=== PATIENT | female | born 1985 | race Caucasian/White ===

== ENCOUNTER → 2017-09-03 06:37 | Outpatient (CLI) | payer OTHER, SELFPAY ==
[2017-09-03 10:48] LABS: Progesterone Level 5.12 ng/mL (See Comment)
== END ==
PROVIDERS: Family Provider Family Medicine; PCP Family Medicine; Visit Provider Nurse Practitioner Women's Health
DX: N92.6 Irregular menstruation, unspecified (principal)
CPT/HCPCS: 36415; 84144

== ENCOUNTER → 2017-09-29 14:45 | Outpatient (CLI) | payer OTHER, SELFPAY ==
[2017-09-29 16:54] LABS: Chlamydia Trachomatis by PCR Negative (Negative); Neisserai gonorrhoeae by PCR Negative (Negative); Probe Check PASS; Sample Adequacy Control PASS; Specimen Processing Control PASS
[2017-10-05 17:35] LABS: HPV APTIMA, High Risk Negative (Negative)
== END ==
PROVIDERS: Family Provider Family Medicine; PCP Family Medicine; Visit Provider Obstetrics & Gynecology
DX: Z34.01 Encounter for supervision of normal first pregnancy, first trimester (principal); Z12.4 Encounter for screening for malignant neoplasm of cervix
CPT/HCPCS: 87086; 87088; 87491; 87591; 88175; G0145

== ENCOUNTER → 2017-10-14 16:34 | Outpatient (CLI) | payer OTHER, SELFPAY ==
[2017-10-14 17:38] LABS: Absolute Lymphocyte Count 2.62 X10^3/ul (0.83-4.51); Absolute Neutrophil Count 7.1 X10^3/uL (2.0-7.7); Basophil# 0.04 X10^3/uL; Basophil% 0.4 % (0-1); Eosinophils% 2.8 % (0-5); Hematocrit 35.7 % (37-47); Hemoglobin 12.1 g/dl (12.0-15.0); Lymphocyte # 2.62 X10^3/ul (4.0); Lymphocyte % 24.3 % (19-41); Mean Corp Hgb Conc 33.9 g/gl (32-36); Mean Corpuscular Hgb 29.6 pg (27.0-32.0); Mean Corpuscular Volume 87.3 fL (81-99); Mean Platelet Vol. 10.3 fl (6.2-12.0); Monocyte# 0.74 X10^3/uL; Monocyte% 6.9 % (0-10); Neutrophil # 7.07 X10^3/uL (2.7-7.7); Neutrophil % 65.3 % (47-70); Platelet Count 345 K/mm3 (150-450); RBC Distribution Width CV 12.5 % (11.6-14.6); RBC Distribution Width SD 38.8 fl (35.1-43.9); Red Blood Count 4.09 M/mm3 (4.2-5.4); White Blood Count 10.8 K/mm3 (4.4-11.0)
[2017-10-14 18:24] LABS: POSITIVE COUNT NO; POSITIVE DIFFERENTIAL NO; POSITIVE MORPHOLOGY NO
[2017-10-15 01:13] LABS: Rapid Plasmin Reagin (RPR) NONREACTIVE (NONREACTIVE)
[2017-10-15 10:42] LABS: HIV - WCH Non-Reactive (Nonreactive); Rubella IgG 57.3 IU/mL
[2017-10-16 11:47] LABS: HEPATITIS B SURFACE AG Negative (Negative)
== END ==
PROVIDERS: Family Provider Family Medicine; PCP Family Medicine; Visit Provider Obstetrics & Gynecology
DX: Z34.90 Encounter for supervision of normal pregnancy, unspecified, unspecified trimester (principal); Z3A.00 Weeks of gestation of pregnancy not specified
CPT/HCPCS: 36415; 85025; 86592; 86703; 86762; 86850; 86900; 87340

== ENCOUNTER → 2017-11-03 10:28 | Outpatient (CLI) | payer OTHER, SELFPAY ==
[2017-11-03 11:27] LABS: Glucose Challenge Gest 1H 50g 137 mg/dL (70-140)
== END ==
PROVIDERS: Family Provider Family Medicine; PCP Family Medicine; Visit Provider Obstetrics & Gynecology
DX: Z34.01 Encounter for supervision of normal first pregnancy, first trimester (principal)
CPT/HCPCS: 36415; 82950

== ENCOUNTER → 2017-11-12 07:48 | Outpatient (CLI) | payer OTHER, SELFPAY ==
--- NOTE | 2017-11-12 07:48 | DT_ITS ---
This patient was seen during an EMR downtime November 08, 2017 - November 15, 2017. This patient may have a combination of paper and electronic documentation or all paper documentation. All documentation is viewable within the e-chart portion of [facility] for each patient visit.
[2017-11-12 14:48] LABS: Glucose GTT-Gestational 2 Hr 127 mg/dL (<165)
[2017-11-12 14:51] LABS: Glucose GTT-Gestational 1 Hr 108 mg/dL (<190)
[2017-11-12 15:08] LABS: Glucose GTT-Gestation. Fasting 80 mg/dL (<105)
[2017-11-12 15:38] LABS: Glucose GTT-Gestational 3 Hr 85 L (<145)
== END ==
PROVIDERS: Family Provider Family Medicine; PCP Family Medicine; Visit Provider Obstetrics & Gynecology
DX: O99.810 Abnormal glucose complicating pregnancy (principal); Z3A.00 Weeks of gestation of pregnancy not specified
CPT/HCPCS: 36415; 82951; 82952

== ENCOUNTER → 2018-01-12 07:50 | Outpatient (CLI) | payer OTHER, SELFPAY ==
--- NOTE | 2018-01-12 07:52 | US_ITS ---
STUDY: SECOND AND THIRD TRIMESTER OBSTETRICAL ULTRASOUND REASON FOR EXAM: Female, 32 years old. Complete 2nd trimester OB ultrasound with anatomy survey and biometrics. LMP: 08/14/2017. GA (LMP) 21 week 4 day with CYNTHIA 05/21/2018. TECHNIQUE: Transabdominal ultrasound. PRIOR ULTRASOUND: None. FINDINGS: Single live intrauterine gestation, transverse lie head to the maternal right. Cardiac rate 140 bpm. Placenta posterior not low-lying grade 0. Cervical length 4.4 cm, closed. Normal amniotic fluid quantity, deepest vertical pocket 5.0 x 4.3 cm. BIOMETRY: Measurements in centimeters. BPD: 4.71: 20 weeks, 2 days HC: 18.65: 21 weeks, 0 days AC: 17.34: 22 weeks, 2 days FL: 3.51: 21 weeks, 1 days CI: 71% FL/BPD: 75% FL/AC: 20% HC/AC: 1.08 age by current US: 21 weeks, 2 days. CYNTHIA by current US: 05/23/2018. Estimated weight: 436 grams, +/- 64 grams, 46 %. ANATOMY: Gender: Female Cranium: Normal lateral ventricles. Normal choroid plexus. Normal cerebellum. Normal cisterna magna. Normal face, nose and lips. Chest: Normal 4-chamber heart. Abdomen/Pelvis: Normal diaphragm. Normal stomach. Normal abdominal wall. Normal cord insertion. Normal 3 vessel cord. Normal kidneys. Normal bladder. Spine: Transverse and sagittal views of the cervical, thoracic and lumbosacral spine were obtained in multiple obliquities due to the position of the fetus. In total, the spine appears normal with satisfactory imaging, no evidence of abnormal segmentation or dysraphism. Extremities: Normal bilateral upper extremities. Normal bilateral lower extremities. US/OB Anatomy Scan IMPRESSION: The anatomy survey is complete and satisfactory. No anatomic other malady is observed. Single live intrauterine gestation with appropriate cardiac activity, normal amniotic fluid, no evidence of placenta previa. Closed cervix. Measurements on today's study consistent with 21 week 2 day gestation, closely concordant with expected dates. Electronically Signed: Jonas Halina, at 17:54 EDT Tel , Service support ,
== END ==
PROVIDERS: Family Provider Family Medicine; PCP Family Medicine; Visit Provider Obstetrics & Gynecology
DX: Z34.01 Encounter for supervision of normal first pregnancy, first trimester (principal)
CPT/HCPCS: 76805

== ENCOUNTER → 2018-02-09 14:43 | Outpatient (CLI) | payer OTHER, SELFPAY | PROVIDERS: Family Provider Family Medicine; PCP Family Medicine; Visit Provider Obstetrics & Gynecology | DX: Z36.4 Encounter for antenatal screening for fetal growth retardation (principal) | CPT/HCPCS: 36415 ==

== ENCOUNTER → 2018-02-23 11:55 | Outpatient (CLI) | payer OTHER, SELFPAY ==
[2018-02-23 13:44] LABS: Absolute Lymphocyte Count 1.67 X10^3/ul (0.83-4.51); Absolute Neutrophil Count 8.2 X10^3/uL (2.0-7.7); Basophil# 0.02 X10^3/uL; Basophil% 0.2 % (0-1); Eosinophil# 0.09 X10^3/uL; Eosinophils% 0.9 % (0-5); Hematocrit 33.1 % (37-47); Hemoglobin 10.8 g/dl (12.0-15.0); Lymphocyte # 1.67 X10^3/ul (4.0); Mean Corp Hgb Conc 32.6 g/gl (32-36); Mean Corpuscular Hgb 29.3 pg (27.0-32.0); Mean Corpuscular Volume 89.9 fL (81-99); Mean Platelet Vol. 10.1 fl (6.2-12.0); Monocyte# 0.33 X10^3/uL; Monocyte% 3.2 % (0-10); Neutrophil # 8.24 X10^3/uL (2.7-7.7); Neutrophil % 78.9 % (47-70); Platelet Count 283 K/mm3 (150-450); RBC Distribution Width CV 13.1 % (11.6-14.6); RBC Distribution Width SD 42.1 fl (35.1-43.9); Red Blood Count 3.68 M/mm3 (4.2-5.4); White Blood Count 10.4 K/mm3 (4.4-11.0)
[2018-02-23 13:53] LABS: POSITIVE COUNT NO; POSITIVE DIFFERENTIAL NO; POSITIVE MORPHOLOGY NO
[2018-02-23 14:12] LABS: Glucose Challenge Gest 1H 50g 145 mg/dL (70-140)
== END ==
PROVIDERS: Family Provider Family Medicine; PCP Family Medicine; Visit Provider Nurse Practitioner Women's Health
DX: Z34.90 Encounter for supervision of normal pregnancy, unspecified, unspecified trimester (principal)
CPT/HCPCS: 36415; 82950; 85025

== ENCOUNTER → 2018-03-08 08:21 | Outpatient (CLI) | payer OTHER, SELFPAY ==
--- NOTE | 2018-03-08 08:30 | US_ITS ---
STUDY: SECOND AND THIRD TRIMESTER OBSTETRICAL ULTRASOUND - LIMITED REASON FOR EXAM: Female, 32 years old. growth LMP: Not given PRIOR ULTRASOUND: 01/12/2018 TECHNIQUE: Transabdominal TECHNICAL QUALITY: Adequate. FINDINGS: There is a single intrauterine fetus. The fetus is in a cephalic presentation. There is demonstrated cardiac activity with a heart rate of 140 bpm. There is a grossly normal amniotic fluid volume. The largest amniotic fluid pocket measures 3.7 cm. The placenta is posterior and right lateral in location and is not low lying. There are Grade 0 placental changes. The cervix measures 5.2 cm in length. BIOMETRY: BPD: 6.97 cm: 28 weeks, 1 days HC: 26.9: 29 weeks, 3 days AC: 25.31: 29 weeks, 4 days FL: 5.6: 29 weeks, 4 days Age by LMP: 29 weeks, 3 days. CYNTHIA by LMP: 05/11/2018. age by prior US: 29 weeks, 1 days. CYNTHIA by prior US: 05/23/2018. age by current US: 29 weeks, 2 days. CYNTHIA by current US: 05/22/2018. Estimated weight: 1380 grams, +/- 202 grams, 34 percentile. US/OB Limited With Biometrics IMPRESSION: Intrauterine gestation with sonographic age of 29 weeks 2 days. Cervix is closed. Positive cardiac activity. Grossly normal amniotic fluid volume. Normal placenta. Electronically Signed: Shailesh Caballero MD at 23:46 EDT Tel , Service support ,
== END ==
PROVIDERS: Family Provider Family Medicine; PCP Family Medicine; Visit Provider Obstetrics & Gynecology
DX: O99.810 Abnormal glucose complicating pregnancy (principal); Z3A.00 Weeks of gestation of pregnancy not specified
CPT/HCPCS: 76816

== ENCOUNTER → 2018-03-09 07:29 | Outpatient (CLI) | payer OTHER, SELFPAY ==
[2018-03-09 08:34] LABS: Absolute Lymphocyte Count 1.67 X10^3/ul (0.83-4.51); Absolute Neutrophil Count 7.6 X10^3/uL (2.0-7.7); Basophil# 0.02 X10^3/uL; Basophil% 0.2 % (0-1); Eosinophil# 0.15 X10^3/uL; Eosinophils% 1.5 % (0-5); Hematocrit 30.8 % (37-47); Hemoglobin 10.2 g/dl (12.0-15.0); Lymphocyte # 1.67 X10^3/ul (4.0); Lymphocyte % 16.6 % (19-41); Mean Corp Hgb Conc 33.1 g/gl (32-36); Mean Corpuscular Hgb 29.8 pg (27.0-32.0); Mean Corpuscular Volume 90.1 fL (81-99); Mean Platelet Vol. 10.1 fl (6.2-12.0); Monocyte# 0.56 X10^3/uL; Monocyte% 5.6 % (0-10); Neutrophil # 7.58 X10^3/uL (2.7-7.7); Neutrophil % 75.4 % (47-70); Platelet Count 276 K/mm3 (150-450); RBC Distribution Width SD 41.7 fl (35.1-43.9); Red Blood Count 3.42 M/mm3 (4.2-5.4); White Blood Count 10.1 K/mm3 (4.4-11.0)
[2018-03-09 08:38] LABS: POSITIVE COUNT NO; POSITIVE DIFFERENTIAL NO; POSITIVE MORPHOLOGY NO
[2018-03-09 08:55] LABS: Glucose GTT-Gestation. Fasting 84 mg/dL (<105)
[2018-03-09 09:04] LABS: Glucose GTT-Gestational 1 Hr 171 mg/dL (<190)
[2018-03-09 11:18] LABS: Glucose GTT-Gestational 3 Hr 108 L (<145)
[2018-03-09 11:19] LABS: Glucose GTT-Gestational 2 Hr 100 mg/dL (<165)
== END ==
PROVIDERS: Nurse Practitioner Women's Health; Family Provider Family Medicine; PCP Family Medicine; Referring Provider Obstetrics & Gynecology; Visit Provider Obstetrics & Gynecology
DX: O99.810 Abnormal glucose complicating pregnancy (principal)
CPT/HCPCS: 36415; 82951; 82952; 85025; 86850; 86900

== ENCOUNTER → 2018-04-13 16:58 | Outpatient (CLI) | payer OTHER, SELFPAY ==
--- NOTE | 2018-04-13 16:59 | US_ITS ---
STUDY: SECOND AND THIRD TRIMESTER OBSTETRICAL ULTRASOUND - LIMITED REASON FOR EXAM: Female, 32 years old. growth LMP: PRIOR ULTRASOUND: March 08, 2018 TECHNIQUE: Transabdominal TECHNICAL QUALITY: Adequate. FINDINGS: There is a single intrauterine fetus. The fetus is in a cephalic presentation. There is demonstrated cardiac activity with a heart rate of 129 bpm. There is a normal amniotic fluid volume. The largest amniotic fluid pocket measures 8.8 cm. The amniotic fluid index (GUERO) is 18.6 cm. The placenta is posterior There are Grade 2 placental changes. The cervix measures 4.5 cm in length. BIOMETRY: BPD: 8.6 cm: 34 weeks, 6 days HC: 31.3 cm: 35 weeks, 1 days AC: 30.5 cm: 34 weeks, 4 days FL: 6.7 cm: 34 weeks, 5 days Age by LMP: weeks, days. CYNTHIA by LMP: . age by prior US: 34 weeks, 3 days. CYNTHIA by prior US: May 22, 2019. age by current US: 34 weeks, 6 days. CYNTHIA by current US: May 19, 2018. Estimated weight: 2465 grams, +/- 360 grams, 45 percentile. Gender: US/OB Limited With Biometrics IMPRESSION: Viable intrauterine gestation approximately 34-35 weeks gestational age Electronically Signed: Agusto Cody MD at 22:03 EST , Service support ,
== END ==
PROVIDERS: Family Provider Family Medicine; PCP Family Medicine; Referring Provider Obstetrics & Gynecology; Visit Provider Obstetrics & Gynecology
DX: Z34.90 Encounter for supervision of normal pregnancy, unspecified, unspecified trimester (principal)
CPT/HCPCS: 76816

== ENCOUNTER → 2018-04-27 17:31 | Outpatient (CLI) | payer OTHER, SELFPAY ==
[2018-04-27 10:56] VITALS: BMI 35.1
== END ==
PROVIDERS: Family Provider Family Medicine; PCP Family Medicine; Referring Provider Nurse Practitioner Women's Health; Visit Provider Nurse Practitioner Women's Health
DX: Z34.90 Encounter for supervision of normal pregnancy, unspecified, unspecified trimester (principal)
CPT/HCPCS: 87077; 87081; 87186

== ENCOUNTER 2018-05-25 18:50 | Inpatient (IN) | payer OTHER, SELFPAY ==
[2018-05-12 12:48] VITALS: BMI 53.7
[2018-05-25 12:38] VITALS: BMI 53.7
[2018-05-25 18:57] VITALS: BMI 54.2
[2018-05-25] MEDS: 0.9% Saline Lock 10 ML Syringe IV (20:15)
[2018-05-25] MEDS: miSOPROStol 25 MCG TABLET VAGINAL (20:30)
[2018-05-25 20:38] LABS: Hematocrit 35.4 % (37-47); Hemoglobin 11.7 g/dl (12.0-15.0); Mean Corp Hgb Conc 33.1 g/gl (32-36); Mean Corpuscular Hgb 28.5 pg (27.0-32.0); Mean Corpuscular Volume 86.3 fL (81-99); Mean Platelet Vol. 9.8 fl (6.2-12.0); Platelet Count 299 K/mm3 (150-450); RBC Distribution Width CV 14.1 % (11.6-14.6); RBC Distribution Width SD 43.9 fl (35.1-43.9); Scan Indicated on CBC? Y/N NO; White Blood Count 10.6 K/mm3 (4.4-11.0)
[2018-05-26] MEDS: miSOPROStol 25 MCG TABLET VAGINAL ×4 (00:32→12:50)
[2018-05-26] MEDS: 0.9% Saline Lock 10 ML Syringe IV (04:24)
[2018-05-26] MEDS: DiphenhydrAMINE 25 MG Capsule PO (05:56)
--- NOTE | 2018-05-26 06:43 | PCM.HP.OB ---
- Problem List (1) Post-dates Status: Acute (2) Obesity affecting in third trimester Status: Acute Comment: 1 tm glucola and weekly nst/q4 wk growth after 32 weeks (3) GBS (group B Streptococcus carrier), +RV culture, currently Status: Acute Comment: Treat in labor (4) Anemia in preg-unspec Status: Acute Qualifiers: (5) Status: Acute Qualifiers: Comment: (6) Abnormal glucose affecting Status: Acute Comment: 1st trimester:3 hour gtt normal 28 wk-normal rpt 3 hr GTT (7) screening encounter Status: Acute Comment: nt and lab normal MFM (8) Rh negative status during Status: Acute Qualifiers: Comment: rhogam PRN and at 28 weeks (9) Supervision of normal Status: Acute Qualifiers: Comment: PRR CYNTHIA 05/21/18 Girl:Kishore Joseph History Date of Admission: 06/22/13 Final CYNTHIA: 05/21/18 Gestational age: 40 Weeks and 5 Days History of this : This is a 32 year-old, at 40 weeks gestational age presents for IOL secondary to postdates. she has had a complicated by obesity and anemia. Medical History: Medical History (Last Reviewed 05/25/18 @ 12:38 by Anamaria Millard) Anxiety and depression F41.9, F32.9 Thyroid nodule E04.1 Surgical History: Surgical History (Last Reviewed 05/25/18 @ 12:38 by Anamaria Millard) History of cholecystectomy Z90.49 History of tonsillectomy Z90.89 Allergies fish derived Allergy (Verified 05/25/18 12:38) Swelling Home Medications: Home Medications cetirizine 10 mg capsule 10 mg PO QDAY 08/25/17 vitamin,calcium,fzpsxrbl-hfbo-iglui acid tablet 1 tab PO QDAY 09/29/17 Citalopram Hydrobromide [Citalopram HBr] 20 mg PO QDAY 05/25/18 Smoking Status: Never smoker History Past Pregnancies: Past Pregnancies Delivery Date Name GA/Weeks Outcome Route Weight Infant Gender Labor Length Anesthesia Delivery Location Provider FOB Labs: Mom's Labs & Results 05/25/18 05/25/18 20:15 20:15 WBC 10.6 RBC 4.10 L Hgb 11.7 L Hct 35.4 L MCV 86.3 MCH 28.5 MCHC 33.1 RDW 14.1 RDW Differential 43.9 Plt Count 299 MPV 9.8 Blood Type A NEGATIVE Antibody Screen NEGATIVE Course Did the patient receive Yes care? Labs RH: NEGATIVE RPR/VDRL/Syphilis Reactive Rubella status Immune HbSAg Negative Date Done: 10/14/17 Chlamydia Negative Gonorrhea Negative HIV/AIDS Non-Reactive Group B Strep: Positive Current Obstetrical History Gestational Diabetes No Incompetent Cervix No Infertility No IUGR No Macrosomia No Hypertension/Pre-eclampsia No Placenta Previa/Abruption No PTL/PROM No Uterine anomaly No Oligohydramnios No Polyhydramnios No Multiple gestation No Past Medical History Asthma No Diabetes No Hypertension No Heart disease No Mitral valve prolapse No Neurologic/Seizure disorder/ No Migraines Kidney disease No Liver disease No Varicosities No Clotting disorders/Hx of DVT No Thyroid Dysfunction Yes: thyroid nodules Psychiatric disorders Yes: Hx of anxiety- on medication Major trauma No Abnormal PAP smear No Sleep apnea No Mammogram in the last 2 years No Social History Marital Status: Alleged father Joseph Hx Smoking No Smoking Status Never smoker Expected Delivery Method: Spontaneous Vaginal Review of Systems Constitutional: Denies: Fever, Malaise Eyes: Denies: Blurred vision, Vision Change HEENT: Denies: Head Aches, Visual Changes Cardiovascular: Denies: Chest Pain, Palpitations Respiratory: Denies: Cough, Shortness of Breath, Wheezing Gastrointestinal: Denies: Abdominal Pain, Diarrhea, Nausea, Vomiting Genitourinary: Denies: Dysuria, Hematuria Musculoskeletal: Denies: Joint Pain, Muscle pain Skin: Denies: Lesions, Rash Neurological: Denies: Blurred vision, Focal weakness, Headaches Psychiatric: Denies: Anxiety, Depression Endocrine: Denies: Heat/ Cold Intolerance Hematologic/ Lymphatic: Denies: Easy Bruising, Easy Bleeding Physical Exam General: Alert, Cooperative, No apparent distress HEENT: Atraumatic, Normocephalic. Negative for: Thyromegaly, Lymphadenopathy Cardiovascular: Regular rate Lungs: Normal air movement Abdomen: Soft, Non Tender, Gravid Neurological: Deep Tendon Reflexes 2+/4 and Symmetrical, Neuro grossly intact. Negative for: Clonus BOW MAKER: Normal external genitalia. Negative for: Vulvar lesions Estimated gestational size: Appropriate for gestational size Presentation: Cephalic Cervix Dilation (cm): 1 Assessment/Plan All Active Problems (Last Reviewed 05/25/18 @ 12:38 by Anamaria Millard) Post-dates (Acute) Obesity affecting in third trimester (Acute) GBS (group B Streptococcus carrier), +RV culture, currently (Acute) Segmental and somatic dysfunction of pelvic region (Acute) Segmental and somatic dysfunction of sacral region (Acute) Segmental and somatic dysfunction of lumbar region (Acute) Anemia in preg-unspec (Acute) (Acute) Abnormal glucose affecting (Acute) screening encounter (Acute) Rh negative status during (Acute) Supervision of normal (Acute) This is a 32 year-old, at 40 weeks gestational age prsents for IOL postdates Patient presents IOL, plan expectant management for , pitocin/AROM PRN if needed. Pain management: plans epidural. GBS negative. Management of any complications: none I have reviewed the [facility] and made any clinically relevant updates.
--- NOTE | 2018-05-26 06:46 | HP.PCM_ITS ---
- Problem List (1) Post-dates Status: Acute (2) Obesity affecting in third trimester Status: Acute Comment: 1 tm glucola and weekly nst/q4 wk growth after 32 weeks (3) GBS (group B Streptococcus carrier), +RV culture, currently Status: Acute Comment: Treat in labor (4) Anemia in preg-unspec Status: Acute Qualifiers: (5) Status: Acute Qualifiers: Comment: (6) Abnormal glucose affecting Status: Acute Comment: 1st trimester:3 hour gtt normal 28 wk-normal rpt 3 hr GTT (7) screening encounter Status: Acute Comment: nt and lab normal MFM (8) Rh negative status during Status: Acute Qualifiers: Comment: rhogam PRN and at 28 weeks (9) Supervision of normal Status: Acute Qualifiers: Comment: PRR CYNTHIA 05/21/18 Girl:Kishore Joseph History Date of Admission: 06/22/13 Final CYNTHIA: 05/21/18 Gestational age: 40 Weeks and 5 Days History of this : This is a 32 year-old, at 40 weeks gestational age presents for IOL secondary to postdates. she has had a complicated by obesity and anemia. Medical History: Medical History (Last Reviewed 05/25/18 @ 12:38 by Anamaria Millard) Anxiety and depression F41.9, F32.9 Thyroid nodule E04.1 Surgical History: Surgical History (Last Reviewed 05/25/18 @ 12:38 by Anamaria Millard) History of cholecystectomy Z90.49 History of tonsillectomy Z90.89 Allergies fish derived Allergy (Verified 05/25/18 12:38) Swelling Home Medications: Home Medications cetirizine 10 mg capsule 10 mg PO QDAY 08/25/17 vitamin,calcium,cjhwfste-jore-sbocz acid tablet 1 tab PO QDAY 09/29/17 Citalopram Hydrobromide [Citalopram HBr] 20 mg PO QDAY 05/25/18 Smoking Status: Never smoker History Past Pregnancies: Past Pregnancies Delivery Date Name GA/Weeks Outcome Route Weight Infant Gender Labor Length Anesthesia Delivery Location Provider FOB Labs: Mom's Labs & Results 05/25/18 05/25/18 20:15 20:15 WBC 10.6 RBC 4.10 L Hgb 11.7 L Hct 35.4 L MCV 86.3 MCH 28.5 MCHC 33.1 RDW 14.1 RDW Differential 43.9 Plt Count 299 MPV 9.8 Blood Type A NEGATIVE Antibody Screen NEGATIVE Course Did the patient receive Yes care? Labs RH: NEGATIVE RPR/VDRL/Syphilis Reactive Rubella status Immune HbSAg Negative Date Done: 10/14/17 Chlamydia Negative Gonorrhea Negative HIV/AIDS Non-Reactive Group B Strep: Positive Current Obstetrical History Gestational Diabetes No Incompetent Cervix No Infertility No IUGR No Macrosomia No Hypertension/Pre-eclampsia No Placenta Previa/Abruption No PTL/PROM No Uterine anomaly No Oligohydramnios No Polyhydramnios No Multiple gestation No Past Medical History Asthma No Diabetes No Hypertension No Heart disease No Mitral valve prolapse No Neurologic/Seizure disorder/ No Migraines Kidney disease No Liver disease No Varicosities No Clotting disorders/Hx of DVT No Thyroid Dysfunction Yes: thyroid nodules Psychiatric disorders Yes: Hx of anxiety- on medication Major trauma No Abnormal PAP smear No Sleep apnea No Mammogram in the last 2 years No Social History Marital Status: Alleged father Joseph Hx Smoking No Smoking Status Never smoker Expected Delivery Method: Spontaneous Vaginal Review of Systems Constitutional: Denies: Fever, Malaise Eyes: Denies: Blurred vision, Vision Change HEENT: Denies: Head Aches, Visual Changes Cardiovascular: Denies: Chest Pain, Palpitations Respiratory: Denies: Cough, Shortness of Breath, Wheezing Gastrointestinal: Denies: Abdominal Pain, Diarrhea, Nausea, Vomiting Genitourinary: Denies: Dysuria, Hematuria Musculoskeletal: Denies: Joint Pain, Muscle pain Skin: Denies: Lesions, Rash Neurological: Denies: Blurred vision, Focal weakness, Headaches Psychiatric: Denies: Anxiety, Depression Endocrine: Denies: Heat/ Cold Intolerance Hematologic/ Lymphatic: Denies: Easy Bruising, Easy Bleeding Physical Exam General: Alert, Cooperative, No apparent distress HEENT: Atraumatic, Normocephalic. Negative for: Thyromegaly, Lymphadenopathy Cardiovascular: Regular rate Lungs: Normal air movement Abdomen: Soft, Non Tender, Gravid Neurological: Deep Tendon Reflexes 2+/4 and Symmetrical, Neuro grossly intact. Negative for: Clonus [employer] M[employer] OPERATOR: Normal external genitalia. Negative for: Vulvar lesions Estimated gestational size: Appropriate for gestational size Presentation: Cephalic Cervix Dilation (cm): 1 Assessment/Plan All Active Problems (Last Reviewed 05/25/18 @ 12:38 by Anamaria Millard) Post-dates (Acute) Obesity affecting in third trimester (Acute) GBS (group B Streptococcus carrier), +RV culture, currently (Acute) Segmental and somatic dysfunction of pelvic region (Acute) Segmental and somatic dysfunction of sacral region (Acute) Segmental and somatic dysfunction of lumbar region (Acute) Anemia in preg-unspec (Acute) (Acute) Abnormal glucose affecting (Acute) screening encounter (Acute) Rh negative status during (Acute) Supervision of normal (Acute) This is a 32 year-old, at 40 weeks gestational age prsents for IOL postdates Patient presents IOL, plan expectant management for , pitocin/AROM PRN if needed. Pain management: plans epidural. GBS negative. Management of any complications: none I have reviewed the [facility] and made any clinically relevant updates.
[2018-05-26] MEDS: Acetaminophen 325 MG Tablet PO ×2 (08:51→16:56)
[2018-05-26] MEDS: Lactated Ringers 1,000 ML 50 ML IV ×3 (13:57→23:21)
[2018-05-26] MEDS: Oxytocin 30 units/NS 500 ml 30 UNITS/500 ML IV.SOLN IV (17:40)
--- NOTE | 2018-05-26 22:21 | PCM.PN.BLA ---
Progress Note fhts 130s moderate variability reactive cat I tracing no decels. toco q 2-4. fb and pitocin started after 5 doses of cytoteca nd then fb spontaneously expelled and AROM performed. thin mec noted. continue pit per protocol and antibiotics for gbs positive
[2018-05-27] VITALS (15 sets, daily range): BP systolic 102–136; BP diastolic 52–76; PULSE 72–90; RESP 16–20; TEMP 35.6–37.1; O2SAT 98–100
[2018-05-27] MEDS: fentaNYL-bupivacaine (epidural) 100 ML BAG EPIDURAL ×2 (01:41→06:58)
[2018-05-27] MEDS: Amnioinfusion- 0.9% NS 1,000 ML IV.SOLN. 500 ML INTRA-UTER (03:32)
[2018-05-27] MEDS: Lactated Ringers 1,000 ML 50 ML IV (03:39)
[2018-05-27] MEDS: Acetaminophen 325 MG Tablet PO (07:32)
[2018-05-27] MEDS: Oxytocin 30 units/NS 500 ml 30 UNITS/500 ML IV.SOLN 167 UNITS IV (09:53)
[2018-05-27] MEDS: HYDROmorphone 1 MG/ML Syringe IV ×3 (11:12→18:29)
[2018-05-27] MEDS: Citalopram 20 MG Tablet PO (13:06)
[2018-05-27] MEDS: Ketorolac 30 MG/ML Syringe IV ×2 (13:06→18:27)
[2018-05-27] MEDS: Enoxaparin 40 MG/0.4 ML Syringe SC (14:55)
[2018-05-27] MEDS: 0.9% Saline Lock 10 ML Syringe IV (18:28)
[2018-05-27] MEDS: Lactated Ringers 1,000 ML 100 ML IV (20:21)
[2018-05-28] MEDS: Ketorolac 30 MG/ML Syringe IV ×5 (00:23→23:46)
[2018-05-28 00:30] VITALS: BP 135/69; PULSE 78; RESP 16; TEMP 36.6; O2SAT 98
[2018-05-28] MEDS: HYDROmorphone 1 MG/ML Syringe IV (01:49)
--- NOTE | 2018-05-28 01:57 | OP.PCM_ITS ---
Problem List (1) Post-dates Status: Acute (2) Obesity affecting in third trimester Status: Acute Comment: 1 tm glucola and weekly nst/q4 wk growth after 32 weeks (3) GBS (group B Streptococcus carrier), +RV culture, currently Status: Acute Comment: Treat in labor (4) Anemia in preg-unspec Status: Acute Qualifiers: (5) Status: Acute Qualifiers: Comment: (6) Abnormal glucose affecting Status: Acute Comment: 1st trimester:3 hour gtt normal 28 wk-normal rpt 3 hr GTT (7) screening encounter Status: Acute Comment: nt and lab normal MFM (8) Rh negative status during Status: Acute Qualifiers: Comment: rhogam PRN and at 28 weeks (9) Supervision of normal Status: Acute Qualifiers: Comment: PRR CYNTHIA 05/21/18 Girl:Kishore Joseph Report of Operation Date of Procedure: 05/27/18 Pre-Operative Diagnosis: Induction of labor postdates, morbid obesity BMI of 54, arrest of dilation, suspected CPD Post-Operative Diagnosis: Same plus confirmed CPD Surgery/Procedure Performed:: Primary low transverse Description of Surgical Findings:: Vertex female infant with arrest of dilation at 6 cm dispensing audiologist: Ghassan Ivory Type of Anesthesia:: Spinal Special Medications: None Specimen's removed: Female infant in vertex presentation Drains: Wall Estimated Blood Loss (mL): 600 Fluids Replaced: Crystalloid Description of Procedure: The patient is a 32-year-old at 40 and 6 who presented for induction of labor secondary to postdates. After almost 24 hours of Cytotec Pitocin and a Wall bulb was started and Wall spontaneously fell out after several hours and patient had artificial rupture of membranes for clear fluid. After 13 hours patient experienced an arrest of dilation at 6 cm with a minimum of 4 hours of adequate contractions as documented by an IUPC during the last portion of labor. Patient overall had a reassuring heart rate tracing although she had a documented 5-minute deceleration into the 80s at the end of her labor. It was discussed with the patient and her that I recommend a primary for arrest of dilation due to suspected CPD and the patient and her agreed. Epidural anesthesia was found to be adequate and Wall catheter was in place the patient was placed in the dorsal supine position with leftward tilt. Patient was prepped and draped in the normal sterile fashion. Pfannenstiel skin incision was made with the scalpel and carried through to the underlying layer of fascia with the scalpel. Fascia was nicked in the midline and the incision extended laterally. The rectus bellies were dissected off superiorly and inferiorly with out complication both sharply and bluntly. The peritoneum was entered digitally. The incision was stretched and a low transverse uterine incision was made with the scalpel. The 's head was delivered atraumatically followed by the anterior and posterior shoulders without complication the rest of the infant delivered. The cord was clamped and cut and the was handed off to awaiting nurse. The placenta was delivered spontaneously immediately following and was noted to be intact and have a three- vessel cord. The uterus was exteriorized cleared of all clots and debris, and the incision was closed in a double layer closure using #1 Monocryl. The uterus was returned to the maternal abdomen and gutters were cleared of all clots and debris. The ovaries and fallopian tubes were noted to be within normal limits. The peritoneum was closed with 3-0 Monocryl in a running fashion. Fascia was closed with 0 PDS in a running fashion. Subcutaneous tissue was copiously irrigated and the skin was closed with 3-0 Monocryl in a subcuticular fashion. Mepilex dressing were applied without complication. Patient was taken to recovery in stable condition. Grafts/Implants Used: None - Complications None
--- NOTE | 2018-05-28 01:59 | DCINST_ITS ---
Discharge Diet: No Restrictions Discharge Activity: May Not Drive - for 2 weeks, May not drive while taking narcotic pain medications., May Shower, May Take a Tub Bath - in 7 days May resume sexual activity in: 4-6 weeks Lifting Restrictions: 20 pounds Additional Activity Instructions:: Nothing in the vagina for 4-6 weeks. You may return to work/school in 6 weeks. Call your doctor if your incision/area has: Continuous Slow Oozing, Sudden Increased Bleeding, Increased Pain/ Swelling, Increased Redness, Foul Smelling Discharge Call your doctor if you observe: Fever of 101 or Higher, Using more than one pad per hour - for 2 hours Suture Line Care: Avoid Pulling/Pushing, Avoid Pinching/Bending Cleanse incision/area with: Keep Dressing Clean & Dry Additional Instructions: If you experience any of the following, contact your healthcare provider. * Bleeding that soaks a pad every hour for 2 hours * Fever 100.4 or higher * Unrelieved incision or abdominal pain * Swelling, redness, discharge or bleeding from your incision or episiotomy site * Your incision begins to separate * Problems urinating (including inability to urinate or burning while urinating). * Visual changes * Severe headache * Flu-like symptoms * Pain or redness in one of both of your breasts * Pain, warmth, tenderness or swelling in your legs, especially the calf area * Frequent nausea and vomiting * Symptoms of depression or anxiety If you experience any of the following, call 911 or go to the nearest Emergency Room. * Chest pain * Problems breathing * Seizure activity * Partial or complete paralysis of a body part, slurred speech, weakness or drooping of the face, or a sudden inability to walk or hold your balance Allergies/Adverse Reactions: Allergies fish derived Allergy (Verified 05/25/18 12:38) Swelling Medications to take at Discharge cetirizine 10 mg capsule 10 mg PO QDAY 08/25/17 vitamin,calcium,qvrgxjop-ntjb-fpald acid tablet 1 tab PO QDAY 09/29/17 Citalopram Hydrobromide [Citalopram HBr] 20 mg PO QDAY 05/25/18 Naproxen [Naprosyn] 250 - 500 mg PO Q8H PRN PRN #30 tablet 05/28/18 Oxycodone HCl/Acetaminophen [Percocet 5-325] 1 - 2 tablet PO Q4H PRN PRN 7 Days #28 tablet 05/28/18 The following prescriptions were given: Oxycodone HCl/Acetaminophen [Percocet 5-325] 1 - 2 tablet PO Q4H PRN PRN 7 Days #28 tablet PRN Reason: Moderate-Severe pain Naproxen [Naprosyn] 250 - 500 mg PO Q8H PRN PRN #30 tablet PRN Reason: MILD PAIN Follow-Up: Call to make an appointment with your doctor for an incision check in 1-2 weeks. You will also need a 6 week post- follow up appointment. Test results from this visit will be discussed in further detail at your follow- up appointment, if applicable. Please Follow Up With: Sally Hicks MD - Call to make an appointment for an incision check in 1-2 [phone] When: You will need a post- check in 6 weeks. Primary Care Physician: Joseph Zapata MD [Primary Care Provider] -
[2018-05-28 04:30] VITALS: BP 136/72; PULSE 89; RESP 16; TEMP 36.6; O2SAT 99
[2018-05-28 06:31] LABS: Hematocrit 30.8 % (37-47); Hemoglobin 10.2 g/dl (12.0-15.0); Mean Corp Hgb Conc 33.1 g/gl (32-36); Mean Corpuscular Hgb 28.8 pg (27.0-32.0); Mean Platelet Vol. 9.7 fl (6.2-12.0); Platelet Count 253 K/mm3 (150-450); RBC Distribution Width CV 14.4 % (11.6-14.6); RBC Distribution Width SD 45.5 fl (35.1-43.9); Red Blood Count 3.54 M/mm3 (4.2-5.4); White Blood Count 13.2 K/mm3 (4.4-11.0)
[2018-05-28 06:32] LABS: Scan Indicated on CBC? Y/N NO
[2018-05-28 09:00] VITALS: BP 121/56; PULSE 87; RESP 16; TEMP 36.1
[2018-05-28] MEDS: Acetaminophen 500 MG Tablet 1000 MG PO (10:08)
[2018-05-28] MEDS: Loratadine 10 MG Tablet PO (10:09)
[2018-05-28] MEDS: Prenatal Vits Tablet 1 TABLET PO (10:09)
[2018-05-28] MEDS: Enoxaparin 40 MG/0.4 ML Syringe SC (10:09)
[2018-05-28] MEDS: Citalopram 20 MG Tablet PO (10:09)
[2018-05-28 14:50] VITALS: BP 132/79; PULSE 94; RESP 16; TEMP 36.5
[2018-05-28] MEDS: oxyCODONE 5 MG Tablet PO ×2 (15:21→22:59)
[2018-05-28] MEDS: 0.9% Saline Lock 10 ML Syringe IV ×2 (18:19→23:46)
--- NOTE | 2018-05-28 20:42 | PCM.PN.OB ---
Patient Problems: Active and Suspected Problems (Last Reviewed 05/25/18 @ 12:38 by Anamaria Millard) Post-dates (Acute) Subjective: no cp sob n v doing well - Physical Exam General: Alert, Oriented x3 Vital Signs Temp Pulse Resp BP Pulse Ox 97.7 F L 94 16 132/79 H 99 05/28/18 14:50 05/28/18 14:50 05/28/18 14:50 05/28/18 14:50 05/28/18 04:30 Oxygen Delivery Method Room Air Weight: 296 lb 6 oz Body Mass Index (BMI) 54.2 Intake and Output for Last 24 Hours 05/26/18 05/27/18 05/28/18 23:59 23:59 23:59 Intake Total 2143 / 2143 9074 / 9074 1727 / 1727 Output Total 600 / 600 1850 / 1850 1000 / 1000 Balance 1543 / 1543 7224 / 7224 727 / 727 Laboratory Tests Past 24 Hrs 05/28/18 06:15 WBC 13.2 H RBC 3.54 L Hgb 10.2 L Hct 30.8 L MCV 87.0 MCH 28.8 MCHC 33.1 RDW 14.4 RDW Differential 45.5 H Plt Count 253 MPV 9.7 Medical Necessity - Tobacco Use Smoking Status: Never smoker Assessment/Plan All Active Problems (Last Reviewed 05/25/18 @ 12:38 by Anamaria Millard) Post-dates (Acute) Obesity affecting in third trimester (Acute) GBS (group B Streptococcus carrier), +RV culture, currently (Acute) Segmental and somatic dysfunction of pelvic region (Acute) Segmental and somatic dysfunction of sacral region (Acute) Segmental and somatic dysfunction of lumbar region (Acute) Anemia in preg-unspec (Acute) (Acute) Abnormal glucose affecting (Acute) screening encounter (Acute) Rh negative status during (Acute) Supervision of normal (Acute) s/p LTCS sec AOD CPD PPD # 1 1. routine post delivery care, ambulate oral pain control 2. breast feeding- support given 3. rh negative- rhogam prn 4. rubella immune
[2018-05-28 20:50] VITALS: BP 119/84; PULSE 84; RESP 16; TEMP 36.6; O2SAT 97
[2018-05-29 02:20] VITALS: BP 137/77; PULSE 78; RESP 16; TEMP 36.3; O2SAT 97
[2018-05-29] MEDS: Ketorolac 30 MG/ML Syringe IV (06:11)
[2018-05-29] MEDS: 0.9% Saline Lock 10 ML Syringe IV (06:12)
[2018-05-29] MEDS: oxyCODONE 5 MG Tablet PO ×3 (06:18→18:03)
[2018-05-29 08:00] VITALS: BP 117/60; PULSE 71; RESP 18; TEMP 36.1
--- NOTE | 2018-05-29 08:14 | PCM.PN.OB ---
Patient Problems: Active and Suspected Problems (Last Reviewed 05/25/18 @ 12:38 by Anamaria Millard) Post-dates (Acute) Subjective: doing better pain controlled ambulating - Physical Exam General: Alert, Oriented x3 Vital Signs Temp Pulse Resp BP Pulse Ox 97.4 F L 78 16 137/77 H 97 05/29/18 02:20 05/29/18 02:20 05/29/18 02:20 05/29/18 02:20 05/29/18 02:20 Oxygen Delivery Method Room Air Weight: 296 lb 6 oz Body Mass Index (BMI) 54.2 Intake and Output for Last 24 Hours 05/27/18 05/28/18 05/29/18 23:59 23:59 23:59 Intake Total 9074 / 9074 1727 / 1727 Output Total 1850 / 1850 1000 / 1000 Balance 7224 / 7224 727 / 727 Medical Necessity - Tobacco Use Smoking Status: Never smoker Assessment/Plan All Active Problems (Last Reviewed 05/25/18 @ 12:38 by Anamaria Millard) Post-dates (Acute) Obesity affecting in third trimester (Acute) GBS (group B Streptococcus carrier), +RV culture, currently (Acute) Segmental and somatic dysfunction of pelvic region (Acute) Segmental and somatic dysfunction of sacral region (Acute) Segmental and somatic dysfunction of lumbar region (Acute) Anemia in preg-unspec (Acute) (Acute) Abnormal glucose affecting (Acute) screening encounter (Acute) Rh negative status during (Acute) Supervision of normal (Acute) s/p LTCS sec AOD CPD PPD # 2 1. routine post delivery care, ambulate oral pain control 2. breast feeding- support given 3. rh negative- rhogam prn 4. rubella immune
[2018-05-29 10:00] VITALS: BP 117/60; PULSE 71; RESP 18; TEMP 36.1
[2018-05-29] MEDS: Loratadine 10 MG Tablet PO (11:46)
[2018-05-29] MEDS: Senna/Docusate Sodium 1 Tablet PO (11:46)
[2018-05-29] MEDS: Acetaminophen 500 MG Tablet 1000 MG PO (11:47)
[2018-05-29] MEDS: Citalopram 20 MG Tablet PO (11:47)
[2018-05-29] MEDS: Prenatal Vits Tablet 1 TABLET PO (11:48)
[2018-05-29] MEDS: Enoxaparin 40 MG/0.4 ML Syringe SC (11:52)
[2018-05-29 14:00] VITALS: BP 132/64; PULSE 81; RESP 18; TEMP 36.2
[2018-05-29] MEDS: Ibuprofen 600 MG Tablet PO ×2 (15:01→21:44)
[2018-05-29 19:50] VITALS: BP 128/67; PULSE 76; RESP 18; TEMP 36.3; O2SAT 98
[2018-05-30] MEDS: Acetaminophen 500 MG Tablet 1000 MG PO (02:03)
[2018-05-30 02:05] VITALS: BP 126/77; PULSE 66; RESP 16; TEMP 36.3; O2SAT 98
[2018-05-30 07:45] VITALS: BP 134/74; PULSE 82; RESP 16; TEMP 36.3; O2SAT 99
[2018-05-30] MEDS: Ibuprofen 600 MG Tablet PO (08:14)
--- NOTE | 2018-05-30 09:23 | PCM.PN.OB ---
Patient Problems: Active and Suspected Problems (Last Reviewed 05/25/18 @ 12:38 by Anamaria Millard) Post-dates (Acute) Subjective: doing well no CP SOB NV pain controlled - Physical Exam General: Alert, Oriented x3 Abdomen: Soft, Non Tender, Non-Distended Vital Signs Temp Pulse Resp BP Pulse Ox 97.4 F L 82 16 134/74 H 99 05/30/18 07:45 05/30/18 07:45 05/30/18 07:45 05/30/18 07:45 05/30/18 07:45 Oxygen Delivery Method Room Air Weight: 296 lb 6 oz Body Mass Index (BMI) 54.2 Intake and Output for Last 24 Hours 05/28/18 05/29/18 05/30/18 23:59 23:59 23:59 Intake Total 1727 / 1727 Output Total 1000 / 1000 Balance 727 / 727 Medical Necessity - Tobacco Use Smoking Status: Never smoker Assessment/Plan All Active Problems (Last Reviewed 05/25/18 @ 12:38 by Anamaria Millard) Post-dates (Acute) Obesity affecting in third trimester (Acute) GBS (group B Streptococcus carrier), +RV culture, currently (Acute) Segmental and somatic dysfunction of pelvic region (Acute) Segmental and somatic dysfunction of sacral region (Acute) Segmental and somatic dysfunction of lumbar region (Acute) Anemia in preg-unspec (Acute) (Acute) Abnormal glucose affecting (Acute) screening encounter (Acute) Rh negative status during (Acute) Supervision of normal (Acute) s/p LTCS sec AOD CPD PPD # 3 1. routine post delivery care, ambulate oral pain control 2. breast feeding- support given 3. rh negative- rhogam prn 4. rubella immune
--- NOTE | 2018-05-30 09:24 | PCM.DC.SUM ---
Discharge Date and Diagnosis - Problem List Patient Problems: Active and Suspected Problems (Last Reviewed 05/25/18 @ 12:38 by Anamaria Millard) Post-dates (Acute) Date of Admission: 06/22/13 Date of Discharge: 05/30/18 - Primary Discharge Diagnosis Active and Suspected Problems (Last Reviewed 05/25/18 @ 12:38 by Anamaria Millard) Post-dates (Acute) Hospital Course and Treatment Consultations 05/25/18 18:58 Consult: Anesthesia Routine Comment: Reason For Exam: labor Operations: - - ltcs Procedures: None Summary of Care Provided: The patient is a 32 year old F presented for IOL secondary to postdates and underwent cytotec x 20 hours, Pitocin and corbin bulb for almost 20 hours and developed arrest of dilation at 6 cm after 14 hours. The patient underwent a primary LTCS and had a routine recovery with a return of bowel and bladder function and was stable for dc to home on pod 3 Patient Problems: Active and Suspected Problems (Last Reviewed 05/25/18 @ 12:38 by Anamaria Millard) Post-dates (Acute) - Physical Exam Vital Signs Temp Pulse Resp BP Pulse Ox 97.4 F L 82 16 134/74 H 99 05/30/18 07:45 05/30/18 07:45 05/30/18 07:45 05/30/18 07:45 05/30/18 07:45 Oxygen Delivery Method Room Air Weight: 296 lb 6 oz Body Mass Index (BMI) 54.2 Intake and Output for Last 24 Hours 05/28/18 05/29/18 05/30/18 23:59 23:59 23:59 Intake Total 1727 / 1727 Output Total 1000 / 1000 Balance 727 / 727 Discharge Diet: No Restrictions Discharge Activity: May Not Drive - for 2 weeks, May not drive while taking narcotic pain medications., May Shower, May Take a Tub Bath - in 7 days May resume sexual activity in: 4-6 weeks Additional Activity Instructions:: Nothing in the vagina for 4-6 weeks. You may return to work/school in 6 weeks. Call your doctor if your incision/area has: Continuous Slow Oozing, Sudden Increased Bleeding, Increased Pain/ Swelling, Increased Redness, Foul Smelling Discharge Call your doctor if you observe: Fever of 101 or Higher, Using more than one pad per hour - for 2 hours Suture Line Care: Avoid Pulling/Pushing, Avoid Pinching/Bending Cleanse incision/area with: Keep Dressing Clean & Dry Home Medications: Medications to take at Discharge cetirizine 10 mg capsule 10 mg PO QDAY 08/25/17 vitamin,calcium,angdojlj-bdsd-grxtw acid tablet 1 tab PO QDAY 09/29/17 Citalopram Hydrobromide [Citalopram HBr] 20 mg PO QDAY 05/25/18 Naproxen [Naprosyn] 250 - 500 mg PO Q8H PRN PRN #30 tablet 05/28/18 Oxycodone HCl/Acetaminophen [Percocet 5-325] 1 - 2 tablet PO Q4H PRN PRN 7 Days #28 tablet 05/28/18 Following Prescrptions Were Given to Patient: Oxycodone HCl/Acetaminophen [Percocet 5-325] 1 - 2 tablet PO Q4H PRN PRN 7 Days #28 tablet PRN Reason: Moderate-Severe pain Naproxen [Naprosyn] 250 - 500 mg PO Q8H PRN PRN #30 tablet PRN Reason: MILD PAIN Primary Care Physician: Joseph Zapata MD [Primary Care Provider] - Please Follow Up With: Sally Hicks MD - Call to make an appointment for an incision check in 1-2 [phone] When: You will need a post- check in 6 weeks. Medical Necessity - Tobacco Use Smoking Status: Never smoker Meaningful Use Info Meaningful Use Diagnoses (Choose all that apply): None applicable
[2018-05-30] MEDS: Prenatal Vits Tablet 1 TABLET PO (09:39)
[2018-05-30] MEDS: Citalopram 20 MG Tablet PO (09:39)
[2018-05-30] MEDS: oxyCODONE 5 MG Tablet PO (09:39)
[2018-05-30] MEDS: Loratadine 10 MG Tablet PO (09:39)
[2018-05-30] MEDS: Enoxaparin 40 MG/0.4 ML Syringe SC (11:00)
--- NOTE | 2018-05-30 12:10 | CASEMGMT ---
Social Work Note Please see attached assessment. Information obtained from: Upon entry into room SIGRID is sitting upright in bed in no apparent distress, smiling and willing to participate in assessment. VENTURA is sitting in the rocking chair to the left of SIGRID and is also actively participating in assessment. Introduced self and role at [facility]. Living Arrangements: SIGRID and VENTURA recently sold [place] house and bought a new house closer to VENTURA's family. It is a private home and there are no other children presently. Employment/Financial: Both SIGRID and FODorothea work FT. SIGRID will have time off of work and will be the primary caregiver. States that she will have adequate help from family that lives nearby. Deny any financial concerns at this time. Supports: SIGRID and VENTURA report to have adequate supports among family that lives locally. Social/Family Supports: SIGRID states that they recently bought a house and that process was stressful, and it is a new adjustment, but it is a positive change. Denies any other stressors at this time. Mental Health Hx: SIGRID reports a hx of anxiety. Presently does not go to counseling and denies services at this time. Olinda Mares, MUSICAL ENGINEER-C, prescribes her Celexa. She reports coping skills as eating or calling a friend. Educate to healthy coping skills and the concerns of using eating as one. Understanding expressed. Educate SIGRID and VENTURA to PPD and symptoms. Encourage them to setup an appointment immediately with Dr. Palma or Olinda Mares if any symptoms persist. Understanding expressed. Substance Use Hx: Denies any hx of substance use. Intervention(s) Assessment completed, no significant concerns that would warrant delay in discharge. Educated to PPD and appropriate resources. PLAN: Discharge home this date with support of spouse. Era Navarrete, DYNAMICS AX DEVELOPER, [facility]
[2018-05-30 13:00] VITALS: BP 139/78; PULSE 75; RESP 16; TEMP 36.4; O2SAT 97
== END 2018-05-30 13:00 | disposition home or self-care (01) | DRG 787 ==
PROVIDERS: Admitting Provider Obstetrics & Gynecology; Family Provider Family Medicine; PCP Family Medicine; Referring Provider Obstetrics & Gynecology; Visit Provider Obstetrics & Gynecology
DX: O48.0 Post-term pregnancy (principal); Z68.43 Body mass index [BMI] 50.0-59.9, adult; O62.1 Secondary uterine inertia; O33.9 Maternal care for disproportion, unspecified; O99.214 Obesity complicating childbirth; E66.01 Morbid (severe) obesity due to excess calories; O77.0 Labor and delivery complicated by meconium in amniotic fluid; O99.824 Streptococcus B carrier state complicating childbirth; Z67.91 Unspecified blood type, Rh negative; O99.02 Anemia complicating childbirth; M99.05 Segmental and somatic dysfunction of pelvic region; M99.04 Segmental and somatic dysfunction of sacral region; M99.03 Segmental and somatic dysfunction of lumbar region; O99.344 Other mental disorders complicating childbirth; F32.9 Major depressive disorder, single episode, unspecified; F41.9 Anxiety disorder, unspecified; Z79.899 Other long term (current) drug therapy; Z3A.40 40 weeks gestation of pregnancy; Z37.0 Single live birth
CPT/HCPCS: 59025; 59050; 85027; 85461; 86850; 86900; 90384; 99218; J7030; J7120; A4216; G0378; J2790

== ENCOUNTER → 2019-10-12 10:36 | Outpatient (CLI) | payer OTHER, SELFPAY ==
[2019-10-12 10:10] VITALS: BMI 54.2
[2019-10-12 11:19] LABS: Hemoglobin A1c 5.2 % (4.2-6.3)
== END ==
PROVIDERS: PCP Family Medicine; Referring Provider Nurse Practitioner Women's Health; Visit Provider Nurse Practitioner Women's Health
DX: E04.1 Nontoxic single thyroid nodule (principal); E66.01 Morbid (severe) obesity due to excess calories
CPT/HCPCS: 36415; 83036; 84443

== ENCOUNTER → 2019-10-24 11:24 | Outpatient (CLI) | payer OTHER, SELFPAY ==
[2019-10-12 10:10] VITALS: BMI 54.2
--- NOTE | 2019-10-24 11:32 | US_ITS ---
STUDY: THYROID ULTRASOUND REASON FOR EXAM: Female, 34 years old. NODULES TECHNIQUE: Ultrasound evaluation of the thyroid was performed with real-time and static mensah-scale imaging. COMPARISON: Thyroid ultrasound February 12, 2017. FINDINGS: RIGHT LOBE: The right lobe of the thyroid gland measures 4.7 x 1.8 x 1.2 cm. There is a homogeneous echotexture. There are no demonstrated solid, cystic or complex lesions within the thyroid itself. Well-defined, isoechoic 11 x 8 x 6 mm structure posterior to the thyroid gland is thought to be a normal parathyroid gland LEFT LOBE: The left lobe of the thyroid gland measures 4.5 x 1.7 x 1.3 cm. There is a homogeneous echotexture. There is a stable moderately defined, heterogeneous 7 x 4 x 6 mm solid nodule in the upper to mid pole. There is also a stable 3 x 2 x 2 mm hypoechoic lesion without significant posterior acoustic enhancement in the lower pole. ISTHMUS: The isthmus measures 4.0 mm. The regional lymph nodes are normal. US/Thyroid IMPRESSION: 1. Heterogeneous 7 mm nodule in the upper to mid pole of the left thyroid lobe is slightly increased in size. Since this remains under 1 cm, however, continued annual follow-up ultrasound is advised. 3 mm hypoechoic lesion in the lower pole is unchanged. 2. Unremarkable right thyroid lobe. Posterior to the right thyroid is an 11 mm isoechoic structure thought to be a normal parathyroid gland. Electronically Signed: Cheko Mcgrath MD at 13:23 EDT , Service support ,
== END ==
PROVIDERS: PCP Family Medicine; Referring Provider Nurse Practitioner Women's Health; Visit Provider Nurse Practitioner Women's Health
DX: E04.1 Nontoxic single thyroid nodule (principal)
CPT/HCPCS: 76536

== ENCOUNTER → 2019-11-10 12:18 | Outpatient (CLI) | payer OTHER, SELFPAY ==
[2019-10-12 10:10] VITALS: BMI 54.2
[2019-11-10 15:56] LABS: Absolute Lymphocyte Count 2.42 X10^3/uL (0.83-4.51); Absolute Neutrophil Count 6.9 X10^3/uL (2.0-7.7); Basophil# 0.04 X10^3/uL; Basophil% 0.4 % (0-1); Eosinophil# 0.18 X10^3/uL; Eosinophils% 1.8 % (0-5); Hematocrit 44.6 % (37-47); Hemoglobin 14.3 g/dL (12.0-15.0); Lymphocyte # 2.42 X10^3/ul (4.0); Lymphocyte % 23.8 % (19-41); Mean Corp Hgb Conc 32.1 g/dL (32-36); Mean Corpuscular Hgb 29.1 pg (27.0-32.0); Mean Corpuscular Volume 90.8 fL (81-99); Mean Platelet Vol. 10.5 fl (6.2-12.0); Monocyte# 0.59 X10^3/uL; Monocyte% 5.8 % (0-10); NRBC Flagged by Analyzer 0 % (0-5); Neutrophil # 6.89 X10^3/uL (2.7-7.7); Neutrophil % 67.8 % (47-70); Platelet Count 380 K/mm3 (150-450); RBC Distribution Width SD 42.3 fl (35.1-43.9); Red Blood Count 4.91 M/mm3 (4.2-5.4); White Blood Count 10.2 K/mm3 (4.4-11.0)
[2019-11-10 16:46] LABS: ALB/GLOB Ratio 1.1 RATIO (0.9-2.4); AST(SGOT) 17 U/L (15-37); Alanine Aminotransfer ALT/SGPT 40 U/L (13-56); Albumin, Serum 4.1 g/dL (3.2-5.0); Alkaline Phosphatase 68 U/L (45-117); Anion Gap 6 (5-15); BUN 12 mg/dL (7-18); BUN/Creat Ratio 12.6 RATIO (10-20); Calcium,Total 9.4 mg/dL (8.5-10.1); Chloride 104 mmol/L (98-107); Cholesterol 187 mg/dL (200); Creatinine, Serum 0.95 mg/dL (0.55-1.02); EST Glomerular Filtration Rate 71 mL/min (>60); Est Glom Filt Rate - Afr Amer 86 mL/min (>60); Globulin 3.7 g/dL (2.2-4.2); Glucose 81 mg/dL (74-106); High Density Lipoprotein 43 mg/dL; Potassium 4.2 mmol/L (3.5-5.1); Protein, Total 7.8 g/dL (6.4-8.2); Sodium Level 136 mmol/L (136-145); Triglycerides 131 mg/dL; Very Low Density Lipoprotein 26 mg/dL (5-40)
== END ==
PROVIDERS: PCP Family Medicine; Referring Provider Family Medicine; Visit Provider Family Medicine
DX: E66.01 Morbid (severe) obesity due to excess calories (principal)
CPT/HCPCS: 36415; 80053; 80061; 85025

== ENCOUNTER → 2022-08-17 | Outpatient (CLI) | payer OTHER, SELFPAY ==
[2022-08-24 12:24] LABS: Testosterone Free 3.3 pg/mL (0.0-4.2)
[2022-08-26 13:39] LABS: HPV APTIMA, High Risk Negative (Negative)
== END | disposition home or self-care (01) ==
PROVIDERS: Visit Provider Nurse Practitioner Women's Health
DX: Z12.4 Encounter for screening for malignant neoplasm of cervix (principal)
CPT/HCPCS: 36415; 82627; 84402; 87624; 88175; 82626; G0145

== ENCOUNTER → 2023-09-02 | Outpatient (CLI) | payer OTHER, SELFPAY ==
[2023-09-02 12:27] LABS: Absolute Lymphocyte Count 2.48 X10^3/uL (0.83-4.51); Absolute Neutrophil Count 5.4 X10^3/uL (2.0-7.7); Basophil# 0.09 X10^3/uL; Eosinophil# 0.37 X10^3/uL; Eosinophils% 4.2 % (0-5); Hematocrit 38.6 % (37-47); Hemoglobin 12.7 g/dL (12.0-15.0); Lymphocyte # 2.48 X10^3/ul (0.83-4.51); Mean Corp Hgb Conc 32.9 g/dL (32-36); Mean Corpuscular Hgb 28.7 pg (27.0-32.0); Mean Corpuscular Volume 87.3 fL (81-99); Mean Platelet Vol. 9.8 fl (6.2-12.0); Monocyte# 0.47 X10^3/uL; Monocyte% 5.3 % (0-10); NRBC Flagged by Analyzer 0 % (0-5); Neutrophil # 5.37 X10^3/uL (2.7-7.7); Neutrophil % 60.7 % (47-70); Platelet Count 370 K/mm3 (150-450); RBC Distribution Width CV 12.6 % (11.6-14.6); RBC Distribution Width SD 39.8 fl (35.1-43.9); Red Blood Count 4.42 M/mm3 (4.2-5.4); White Blood Count 8.9 K/mm3 (4.4-11.0)
[2023-09-02 13:09] LABS: Progesterone Level < 0.21 ng/mL (See Comment)
== END | disposition home or self-care (01) ==
LOC: LAB 11:52
PROVIDERS: Referring Provider Nurse Practitioner Women's Health; Visit Provider Nurse Practitioner Women's Health
DX: N91.5 Oligomenorrhea, unspecified (principal)
CPT/HCPCS: 36415; 84144; 85025